=== PATIENT | male | born 1945 | race Caucasian/White ===

== ENCOUNTER → 2024-01-06 13:00 | Outpatient (REF) | payer MEDICARE, SELFPAY | LOC: RAD 13:00 | PROVIDERS: ATTENDING PHYSICIAN Internal Medicine Cardiovascular Disease | DX: I48.91 Unspecified atrial fibrillation (principal); R06.02 Shortness of breath; R60.0 Localized edema | CPT/HCPCS: 71046 ==

== ENCOUNTER → 2024-01-09 07:58 | Outpatient (REF) | payer MEDICARE, SELFPAY | LOC: HWRCS 07:58 | PROVIDERS: ATTENDING PHYSICIAN Internal Medicine Cardiovascular Disease | DX: I48.91 Unspecified atrial fibrillation (principal) | CPT/HCPCS: 93306 ==

== ENCOUNTER → 2024-01-12 07:38 | Outpatient (REF) | payer MEDICARE, SELFPAY ==
[2024-01-12 09:32] LABS: Albumin 3.6 g/dl (3.5-5.0); Blood Urea Nitrogen 21 mg/dl (9-20); Calcium 9.3 mg/dl (8.4-10.2); Carbon Dioxide 26 mmol/L (22-30); Chloride 101 mmol/L (98-107); Glucose 151 mg/dl (70-99); Phosphorus 2.8 mg/dl (2.5-4.5); Sodium 136 mmol/L (135-145); eGFR > 60.00
== END ==
LOC: REG 07:38
PROVIDERS: ATTENDING PHYSICIAN Internal Medicine Cardiovascular Disease; FAMILY PHYSICIAN Student in an Organized Health Care Education/Training Program
DX: I48.91 Unspecified atrial fibrillation (principal); R06.02 Shortness of breath; R60.0 Localized edema
CPT/HCPCS: 36415; 80069

== ENCOUNTER 2024-01-27 06:47 | Day surgery (SDC) | payer MEDICARE, SELFPAY ==
[2024-01-27 07:58] LABS: Glucose - Point of Care 115 mg/dl (70-99)
== END 2024-01-27 08:59 | disposition home or self-care (01) ==
LOC: CATH 06:47
PROVIDERS: ATTENDING PHYSICIAN Internal Medicine Cardiovascular Disease; FAMILY PHYSICIAN Student in an Organized Health Care Education/Training Program; OTHER PHYSICIAN Internal Medicine Cardiovascular Disease
DX: I08.3 Combined rheumatic disorders of mitral, aortic and tricuspid valves (principal); I48.91 Unspecified atrial fibrillation; I70.0 Atherosclerosis of aorta
CPT/HCPCS: 93312; 93320; 93325; 82962; 92960; 93005

== ENCOUNTER → 2024-02-12 07:45 | Outpatient (REF) | payer MEDICARE, SELFPAY ==
[2024-02-12 08:37] LABS: Albumin 4.2 g/dl (3.5-5.0); Blood Urea Nitrogen 19 mg/dl (9-20); Calcium 8.8 mg/dl (8.4-10.2); Carbon Dioxide 30 mmol/L (22-30); Chloride 101 mmol/L (98-107); Glucose 97 mg/dl (70-99); Phosphorus 3.8 mg/dl (2.5-4.5); Potassium 4.2 mmol/L (3.5-5.1); Sodium 138 mmol/L (135-145); eGFR > 60.00
== END ==
LOC: REG 07:45
PROVIDERS: ATTENDING PHYSICIAN Internal Medicine Cardiovascular Disease
DX: I25.810 Atherosclerosis of coronary artery bypass graft(s) without angina pectoris (principal)
CPT/HCPCS: 36415; 80069

== ENCOUNTER → 2024-05-21 07:11 | Outpatient (REF) | payer MEDICARE, SELFPAY | LOC: DHCBC/DCA 07:11 | PROVIDERS: ATTENDING PHYSICIAN Internal Medicine Cardiovascular Disease; FAMILY PHYSICIAN Student in an Organized Health Care Education/Training Program | DX: I25.810 Atherosclerosis of coronary artery bypass graft(s) without angina pectoris (principal); I50.32 Chronic diastolic (congestive) heart failure; R06.02 Shortness of breath | CPT/HCPCS: 78452; 93017; A9500; J2785 ==

== ENCOUNTER → 2024-06-02 08:35 | Outpatient (REF) | payer MEDICARE, SELFPAY ==
[2024-06-02 11:14] LABS: PSA, Total - Diagnostic 0.63 ng/ml (0.0-4.0)
[2024-06-04 01:19] LABS: Free Testosterone 59 pg/mL (47-244); Sex Hormone Binding Globulin 31 nmol/L (19-76); Testosterone, Bioavailable 150 ng/dL (131-682); Total Testosterone 302 ng/dL (300-720)
== END ==
LOC: REG 08:35
PROVIDERS: ATTENDING PHYSICIAN Physician Assistant; FAMILY PHYSICIAN Student in an Organized Health Care Education/Training Program
DX: C61 Malignant neoplasm of prostate (principal)
CPT/HCPCS: 36415; 84153; 84270; 84402; 84403

== ENCOUNTER → 2024-06-21 14:10 | Outpatient (REF) | payer MEDICARE, SELFPAY | LOC: HWRAD 14:10 | PROVIDERS: ATTENDING PHYSICIAN Student in an Organized Health Care Education/Training Program | DX: R22.1 Localized swelling, mass and lump, neck (principal) | CPT/HCPCS: 76536 ==

== ENCOUNTER → 2024-07-06 12:27 | Outpatient (REF) | payer MEDICARE, SELFPAY ==
[2024-07-06 12:49] VITALS: BP 192/95; BP_SYST 67
== END ==
LOC: RADI 12:27
PROVIDERS: ATTENDING PHYSICIAN Student in an Organized Health Care Education/Training Program
DX: R22.2 Localized swelling, mass and lump, trunk (principal)
CPT/HCPCS: 88173; 20206; 76942

== ENCOUNTER → 2024-11-01 09:43 | Outpatient (REF) | payer MEDICARE, SELFPAY ==
[2024-11-01 11:49] LABS: PSA, Total - Diagnostic 0.68 ng/ml (0.0-4.0)
== END ==
LOC: REG 09:43
PROVIDERS: ATTENDING PHYSICIAN Physician Assistant; FAMILY PHYSICIAN Student in an Organized Health Care Education/Training Program
DX: C61 Malignant neoplasm of prostate (principal)
CPT/HCPCS: 36415; 84153; 84403

== ENCOUNTER 2024-12-24 06:53 | Outpatient (RCR) | payer MEDICARE, SELFPAY | END 2024-12-24 23:59 | disposition home or self-care (01) | LOC: RPT 06:53 | PROVIDERS: ATTENDING PHYSICIAN Internal Medicine Hematology; FAMILY PHYSICIAN Student in an Organized Health Care Education/Training Program | DX: C83.78 Burkitt lymphoma, lymph nodes of multiple sites (principal); E11.42 Type 2 diabetes mellitus with diabetic polyneuropathy; Z73.6 Limitation of activities due to disability; R26.2 Difficulty in walking, not elsewhere classified; M62.81 Muscle weakness (generalized); M54.50 Low back pain, unspecified; R53.83 Other fatigue; Z85.820 Personal history of malignant melanoma of skin; Z85.46 Personal history of malignant neoplasm of prostate; Z92.21 Personal history of antineoplastic chemotherapy; Z92.3 Personal history of irradiation; Z95.1 Presence of aortocoronary bypass graft | CPT/HCPCS: 97163; 97530 ==

== ENCOUNTER → 2025-01-03 08:25 | Outpatient (REF) | payer MEDICARE, SELFPAY ==
[2025-01-03 09:26] LABS: % Basophils 0.4 % (0-2); % Eosinophils 4.8 % (0-6); % Immature Granulocytes 0.4 % (0-0.5); % Lymphocytes 23.8 % (20.5-51.1); % Neutrophils 60.6 % (42.2-75.2); Absolute Eosinophils 0.4 10^3/uL (0-0.7); Absolute Lymphocytes 1.8 10^3/uL (1.2-3.4); Absolute Monocytes 0.8 10^3/uL (0.1-0.6); Absolute Neutrophils 4.6 10^3/uL (1.4-6.5); Hematocrit 40.6 % (39.0-52.0); Hemoglobin 13.9 g/dL (13.0-18.0); Mean Corp Hgb Conc. 34.2 g/dL (33.0-37.0); Mean Corpuscular Hgb 30.4 pg (27.0-31.0); Mean Corpuscular Volume 88.8 fL (80.0-94.0); Mean Platelet Volume 10.2 fL (7.4-10.4); Nucleated Red Blood Cells % 0 % (-); Platelet Count 163 10^3/uL (130-400); Red Blood Cell Count 4.57 10^6/uL (4.70-6.10); Red Cell Dist. Width 12.8 % (11.5-14.5); White Blood Cell Count 7.6 10^3/uL (4.8-10.8)
[2025-01-03 09:36] LABS: INR 1.08; PT 14.3 Sec (11.4-14.6)
[2025-01-03 09:37] LABS: APTT 29.8 Sec (23.4-35.0)
[2025-01-03 09:53] LABS: ALT (SGPT) 17 U/L (0-50); AST (SGOT) 22 U/L (17-59); Albumin 3.8 g/dl (3.5-5.0); Blood Urea Nitrogen 20 mg/dl (9-20); Carbon Dioxide 26 mmol/L (22-30); Chloride 105 mmol/L (98-107); Direct Bilirubin 0.1 mg/dl (0.0-0.4); Glucose 106 mg/dl (70-99); HDL Cholesterol 44 mg/dl; LDL Cholesterol, Calculated 38 mg/dl; Phosphorus 2.8 mg/dl (2.5-4.5); Sodium 138 mmol/L (135-145); Total Bilirubin 1.7 mg/dl (0.2-1.3); Total Cholesterol 92 mg/dl (50-199); Triglyceride 51 mg/dl (10-149); Very Low Density Lipoprotein 10 mg/dl (0-30); eGFR > 60.00
[2025-01-03 11:28] LABS: Microalbumin, Random Urine 32.3 mg/dl (0.6-1.7); Microalbumin/creatinine Ratio 417.3 mg/g
== END ==
LOC: REG 08:25
PROVIDERS: ATTENDING PHYSICIAN Internal Medicine Cardiovascular Disease; FAMILY PHYSICIAN Student in an Organized Health Care Education/Training Program
DX: I48.0 Paroxysmal atrial fibrillation (principal); I25.10 Atherosclerotic heart disease of native coronary artery without angina pectoris; I50.20 Unspecified systolic (congestive) heart failure; J90 Pleural effusion, not elsewhere classified; I34.0 Nonrheumatic mitral (valve) insufficiency; R22.1 Localized swelling, mass and lump, neck; E78.5 Hyperlipidemia, unspecified; M40.202 Unspecified kyphosis, cervical region
CPT/HCPCS: 36415; 72052; 80061; 80069; 82043; 82247; 82248; 82570; 84450; 84460; 85025; 85610; 85730

== ENCOUNTER 2025-01-20 13:27 | Outpatient (RCR) | payer MEDICARE, SELFPAY | END 2025-01-20 23:59 | disposition home or self-care (01) | LOC: RPT 13:27 | PROVIDERS: ATTENDING PHYSICIAN Internal Medicine Hematology; FAMILY PHYSICIAN Student in an Organized Health Care Education/Training Program | DX: C83.78 Burkitt lymphoma, lymph nodes of multiple sites (principal); E11.42 Type 2 diabetes mellitus with diabetic polyneuropathy; Z73.6 Limitation of activities due to disability; R26.2 Difficulty in walking, not elsewhere classified; G62.9 Polyneuropathy, unspecified; M62.81 Muscle weakness (generalized); M54.50 Low back pain, unspecified; R53.83 Other fatigue; R53.0 Neoplastic (malignant) related fatigue; Z85.820 Personal history of malignant melanoma of skin; Z85.46 Personal history of malignant neoplasm of prostate; Z92.21 Personal history of antineoplastic chemotherapy; Z95.1 Presence of aortocoronary bypass graft; Z92.3 Personal history of irradiation | CPT/HCPCS: 97110; 97112; 97140; 97530 ==

== ENCOUNTER 2025-02-17 14:01 | Outpatient (RCR) | payer MEDICARE, SELFPAY | END 2025-02-17 23:59 | disposition home or self-care (01) | LOC: RPT 14:01 | PROVIDERS: ATTENDING PHYSICIAN Internal Medicine Hematology; FAMILY PHYSICIAN Student in an Organized Health Care Education/Training Program | DX: C83.78 Burkitt lymphoma, lymph nodes of multiple sites (principal); E11.42 Type 2 diabetes mellitus with diabetic polyneuropathy; Z73.6 Limitation of activities due to disability; R53.0 Neoplastic (malignant) related fatigue; G62.9 Polyneuropathy, unspecified; M62.81 Muscle weakness (generalized); R26.2 Difficulty in walking, not elsewhere classified; M54.50 Low back pain, unspecified; R53.83 Other fatigue; Z85.820 Personal history of malignant melanoma of skin; Z85.46 Personal history of malignant neoplasm of prostate; Z92.21 Personal history of antineoplastic chemotherapy; Z92.3 Personal history of irradiation; Z95.1 Presence of aortocoronary bypass graft | CPT/HCPCS: 97110; 97112; 97140; 97530 ==

== ENCOUNTER 2025-03-17 11:51 | Outpatient (RCR) | payer MEDICARE, SELFPAY | END 2025-03-17 23:59 | disposition home or self-care (01) | LOC: RPT 11:51 | PROVIDERS: ATTENDING PHYSICIAN Internal Medicine Hematology; FAMILY PHYSICIAN Student in an Organized Health Care Education/Training Program | DX: C83.78 Burkitt lymphoma, lymph nodes of multiple sites (principal); E11.42 Type 2 diabetes mellitus with diabetic polyneuropathy; Z73.6 Limitation of activities due to disability; R53.0 Neoplastic (malignant) related fatigue; M62.81 Muscle weakness (generalized); R26.2 Difficulty in walking, not elsewhere classified; M54.50 Low back pain, unspecified; R53.83 Other fatigue; Z85.820 Personal history of malignant melanoma of skin; Z85.46 Personal history of malignant neoplasm of prostate; Z92.21 Personal history of antineoplastic chemotherapy; Z92.3 Personal history of irradiation; Z95.1 Presence of aortocoronary bypass graft | CPT/HCPCS: 97110; 97112; 97140; 97530 ==

== ENCOUNTER → 2025-04-20 08:35 | Outpatient (REF) | payer MEDICARE, SELFPAY ==
[2025-04-20 09:26] LABS: % Basophils 0.3 % (0-2); % Eosinophils 3.9 % (0-6); % Immature Granulocytes 0.5 % (0-0.5); % Monocytes 10.4 % (1.7-9.3); % Neutrophils 59.9 % (42.2-75.2); Absolute Eosinophils 0.3 10^3/uL (0-0.7); Absolute Lymphocytes 1.7 10^3/uL (1.2-3.4); Absolute Monocytes 0.7 10^3/uL (0.1-0.6); Mean Corp Hgb Conc. 34.2 g/dL (33.0-37.0); Mean Corpuscular Hgb 29.7 pg (27.0-31.0); Mean Platelet Volume 9.7 fL (7.4-10.4); Nucleated Red Blood Cells % 0 % (-); Platelet Count 150 10^3/uL (130-400); Red Blood Cell Count 4.37 10^6/uL (4.70-6.10); Red Cell Dist. Width 13.2 % (11.5-14.5); White Blood Cell Count 6.6 10^3/uL (4.8-10.8)
[2025-04-20 10:31] LABS: ALT (SGPT) 15 U/L (0-50); AST (SGOT) 17 U/L (17-59); Albumin 3.7 g/dl (3.5-5.0); Alkaline Phosphatase 129 U/L (38-126); Blood Urea Nitrogen 20 mg/dl (9-20); Calcium 9.2 mg/dl (8.4-10.2); Carbon Dioxide 28 mmol/L (22-30); Chloride 108 mmol/L (98-107); Glucose 123 mg/dl (70-99); Potassium 3.9 mmol/L (3.5-5.1); Sodium 141 mmol/L (135-145); Total Bilirubin 2.1 mg/dl (0.2-1.3); Total Protein 6.1 g/dl (6.3-8.2); eGFR > 60.00
== END ==
LOC: REG 08:35
PROVIDERS: ATTENDING PHYSICIAN Student in an Organized Health Care Education/Training Program
DX: R63.4 Abnormal weight loss (principal)
CPT/HCPCS: 36415; 80053; 84443; 85025

== ENCOUNTER 2025-04-21 12:59 | Outpatient (RCR) | payer MEDICARE, SELFPAY | END 2025-04-21 23:59 | disposition home or self-care (01) | LOC: RPT 12:59 | PROVIDERS: ATTENDING PHYSICIAN Internal Medicine Hematology; FAMILY PHYSICIAN Student in an Organized Health Care Education/Training Program | DX: C83.78 Burkitt lymphoma, lymph nodes of multiple sites (principal); E11.42 Type 2 diabetes mellitus with diabetic polyneuropathy; Z73.6 Limitation of activities due to disability; R53.0 Neoplastic (malignant) related fatigue; M62.81 Muscle weakness (generalized); R26.2 Difficulty in walking, not elsewhere classified; M54.50 Low back pain, unspecified; R53.83 Other fatigue; Z85.820 Personal history of malignant melanoma of skin; Z85.46 Personal history of malignant neoplasm of prostate; Z92.21 Personal history of antineoplastic chemotherapy; Z92.3 Personal history of irradiation; Z95.1 Presence of aortocoronary bypass graft | CPT/HCPCS: 97010; 97110; 97112; 97140; 97530 ==

== ENCOUNTER → 2025-05-09 10:47 | Outpatient (REF) | payer MEDICARE, SELFPAY ==
[2025-05-09 14:02] LABS: Glycohemoglobin (HgbA1c) 7.5 % (4.0-5.6)
[2025-05-09 15:15] LABS: Urine Albumin 3+ (Neg - Trace); Urine Bilirubin Negative (Negative); Urine Character Clear (Clear); Urine Color Yellow; Urine Glucose 1+ (Negative); Urine Ketone Negative (Negative); Urine Leukocyte Negative (Negative); Urine Nitrite Negative (Negative); Urine Occult Blood Negative (Negative); Urine Urobilinogen Negative (Neg - 1+)
[2025-05-09 15:37] LABS: Urine Bacteria Moderate (Negative); Urine Mucus Moderate; Urine Red Blood Cell 0-2 /HPF (0-2); Urine White Cell 0-2 /HPF (0-5)
== END ==
LOC: REG 10:47
PROVIDERS: ATTENDING PHYSICIAN Student in an Organized Health Care Education/Training Program
DX: E11.9 Type 2 diabetes mellitus without complications (principal); R80.9 Proteinuria, unspecified
CPT/HCPCS: 36415; 81003; 81015; 83036; 87086

== ENCOUNTER → 2025-05-10 09:23 | Outpatient (REF) | payer MEDICARE, SELFPAY | LOC: HWRAD 09:23 | PROVIDERS: ATTENDING PHYSICIAN Student in an Organized Health Care Education/Training Program | DX: R63.4 Abnormal weight loss (principal); R80.9 Proteinuria, unspecified | CPT/HCPCS: 71250; 76770 ==

== ENCOUNTER 2025-05-19 14:07 | Outpatient (RCR) | payer MEDICARE, SELFPAY | END 2025-05-19 23:59 | disposition home or self-care (01) | LOC: RPT 14:07 | PROVIDERS: ATTENDING PHYSICIAN Internal Medicine Hematology; FAMILY PHYSICIAN Student in an Organized Health Care Education/Training Program | DX: C83.78 Burkitt lymphoma, lymph nodes of multiple sites (principal); E11.42 Type 2 diabetes mellitus with diabetic polyneuropathy; Z73.6 Limitation of activities due to disability; R53.0 Neoplastic (malignant) related fatigue; M62.81 Muscle weakness (generalized); R26.2 Difficulty in walking, not elsewhere classified; M54.50 Low back pain, unspecified; R53.83 Other fatigue; Z85.820 Personal history of malignant melanoma of skin; Z85.46 Personal history of malignant neoplasm of prostate; Z92.21 Personal history of antineoplastic chemotherapy; Z92.3 Personal history of irradiation; Z95.1 Presence of aortocoronary bypass graft | CPT/HCPCS: 97110; 97112; 97530 ==

== ENCOUNTER → 2025-05-30 11:40 | Outpatient (REF) | payer MEDICARE, SELFPAY | LOC: RAD 11:40 | PROVIDERS: ATTENDING PHYSICIAN Student in an Organized Health Care Education/Training Program | DX: D73.89 Other diseases of spleen (principal); R63.4 Abnormal weight loss | CPT/HCPCS: 74177; Q9967 ==

== ENCOUNTER → 2025-05-31 10:35 | Outpatient (REF) | payer MEDICARE, SELFPAY ==
[2025-05-31 12:15] LABS: PSA, Total - Diagnostic 0.75 ng/ml (0.0-4.0)
== END ==
LOC: REG 10:35
PROVIDERS: ATTENDING PHYSICIAN Advanced Practice Midwife; FAMILY PHYSICIAN Student in an Organized Health Care Education/Training Program
DX: C61 Malignant neoplasm of prostate (principal)
CPT/HCPCS: 36415; 84153

== ENCOUNTER 2025-06-21 11:37 | Outpatient (RCR) | payer MEDICARE, SELFPAY | END 2025-06-22 12:04 | disposition home or self-care (01) | LOC: RPT 11:37 | PROVIDERS: ATTENDING PHYSICIAN Internal Medicine Hematology; FAMILY PHYSICIAN Student in an Organized Health Care Education/Training Program | DX: C83.78 Burkitt lymphoma, lymph nodes of multiple sites (principal); E11.42 Type 2 diabetes mellitus with diabetic polyneuropathy; Z73.6 Limitation of activities due to disability; R53.0 Neoplastic (malignant) related fatigue; M62.81 Muscle weakness (generalized); R26.2 Difficulty in walking, not elsewhere classified; M54.50 Low back pain, unspecified; R53.83 Other fatigue; Z85.820 Personal history of malignant melanoma of skin; Z85.46 Personal history of malignant neoplasm of prostate; Z92.21 Personal history of antineoplastic chemotherapy; Z92.3 Personal history of irradiation; Z95.1 Presence of aortocoronary bypass graft | CPT/HCPCS: 97110; 97112; 97530 ==

== ENCOUNTER → 2025-10-24 10:01 | Outpatient (REF) | payer MEDICARE, SELFPAY ==
[2025-10-24 20:27] LABS: PSA, Total - Diagnostic 0.68 ng/ml (0.0-4.0)
== END ==
LOC: REG 10:01
PROVIDERS: ATTENDING PHYSICIAN Physician Assistant; FAMILY PHYSICIAN Student in an Organized Health Care Education/Training Program
DX: C61 Malignant neoplasm of prostate (principal)
CPT/HCPCS: 36415; 84153; 84403